=== PATIENT | male | born 1995 | race Caucasian/White ===

== ENCOUNTER 2018-11-19 14:50 | Emergency (ER) | payer OTHER ==
[~2018-11-19] VITALS: Ht 172.7 cm; Wt 77.6 kg
[2018-11-19 14:53] VITALS: BP 125/76; PULSE 66; RESP 18; Ht 172.7 cm; Wt 77.6 kg
[2018-11-19] MEDS ORDERED: ACET500C5 PO (15:43)
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
== END 2018-11-19 16:11 | disposition home or self-care (01) ==
LOC: FTE 14:50
DX: S09.90XA Unspecified injury of head, initial encounter (principal); W01.0XXA Fall on same level from slipping, tripping and stumbling without subsequent striking against object, initial encounter; Y92.9 Unspecified place or not applicable
CPT/HCPCS: 99283